=== PATIENT | female | born 1990 | race Caucasian/White ===

== ENCOUNTER 2021-02-02 15:27 | Emergency (ER) | payer OTHER, SELFPAY ==
[2021-02-02 15:40] VITALS: BP 132/79; PULSE 97; RESP 16; TEMP 36.7; O2SAT 99
--- NOTE | 2021-02-02 16:58 | ED.FEMALEGU ---
HPI - Female Genitourinary General Chief complaint: Urogenital-Female Stated complaint: Possible UTI Time Seen by Provider: 02/02/21 16:59 Source: patient and RN notes reviewed Mode of arrival: ambulatory Limitations: no limitations History of Present Illness HPI Narrative: 30 year old female who presents to [facility] care with complaints of 5 day history of burning with urination, urinary frequency and urgency. Patient does have history of cystitis and past urinary tract infections has seen urologist in the past. She states that she has increased her oral water intake and has been avoiding any caffeine or any soda with no improvement in her symptoms. She reports no fevers chills or sweats, denies any nausea or vomiting, denies any vaginal discharge or any vaginal itching, denies any concern for STD exposure. Patient states that she took 2 days of AZO but has not taken any for the past 2 days. She states some lower perineal pressure and some low back pain for the past 2 days. MD elicited complaint: dysuria, UTI , back pain and other (perineal pressure) Related Data Home Medications Medication Instructions Recorded Confirmed lamotrigine 25 mg tablet 75 mg PO DAILY 10/24/20 02/02/21 sertraline 50 mg tablet 50 mg PO DAILY 10/24/20 02/02/21 Allergies Allergy/AdvReac Type Severity Reaction Status Date / Time metoclopramide [From Reglan] AdvReac Intermediate Muscle Verified 02/02/21 16:58 Spasms Review of Systems Review of Systems: CONSTITUTIONAL: Denies fever, chills, or sweats. EYES: Denies visual changes, redness, or discharge. ENT: Denies rhinorrhea, congestion, sore throat, or otalgia. CARDIOVASCULAR: Denies chest pain, palpitations, or edema. RESPIRATORY: Denies cough or dyspnea. GASTROINTESTINAL: Denies abdominal pain, nausea, vomiting, or diarrhea. GENITOURINARY: Positive for dysuria or hematuria, perineal discomfort and pressure. SKIN: Denies rash or itching. MUSCULOSKELETAL: Positive for lower back pain, joint pain, or myalgia. NEUROLOGIC: Denies headache, numbness, or weakness. PSYCHIATRIC: Denies anxiety or depression. [facility] Past Medical History Medical History (Updated 02/02/21 @ 19:58 by Gabby Sahu NP) Anxiety and depression Chronic cystitis COVID-19 Urinary tract infection, site not specified Surgical History Surgical History (Updated 02/02/21 @ 19:38 by Gabby Sahu NP) History of tonsillectomy Previous section Family History Family History Father Skin cancer Depression Hypertension Alcohol abuse Ulcerative colitis Mother Depression Sibling Asthma Crohn's disease Social History Social History (Updated 02/02/21 @ 19:53 by Gabby Sahu NP) Smoking status: Never smoker Alcohol intake: current Alcohol use details: social Substance use: never Last use: social Living arrangements: with family Gender identity (if verbalized by the patient): Female Exam Narrative: GENERAL: Well-appearing, well-nourished, and in no acute distress. HEAD: Normocephalic, atraumatic. EYES: PERRLA and EOMI. ENT: Nares clear, no rhinorrhea or epistaxis. Mucous membranes moist.TM's normal with good light reflex, throat pink with no lesions or exudates, tonsil absent NECK: Supple. no lymphadenopathy CHEST: Clear to auscultation. No respiratory distress.SAO2 99% on room air HEART: Regular rate and rhythm. No murmur heard. Normal peripheral pulses. ABDOMEN: Soft, nontender to palpation, nondistended, normal active bowel sounds.perineal pressure stated, some low back aching no CVA tenderness on examination. EXTREMITIES: Normal range of motion. No edema. SKIN: Warm, dry, no rash. NEURO: No focal deficits. Alert and oriented x3. Course Vital Signs Vital signs: Vital Signs Temperature 36.7 C 02/02/21 15:40 Pulse Rate 97 02/02/21 15:40 Respiratory Rate 16 02/02/21 15:40 Blood Pressure 132/79 12
== END 2021-02-02 17:18 | disposition home or self-care (01) ==
PROVIDERS: Emergency Provider Registered Nurse; PCP Family Medicine
DX: N39.0 Urinary tract infection, site not specified (principal); F41.9 Anxiety disorder, unspecified; F32.9 Major depressive disorder, single episode, unspecified; Z86.16 Personal history of COVID-19
CPT/HCPCS: 81003; 87077; 87086; 87088; 87186; 99213; G0463